=== PATIENT | female | born 1990 | race Caucasian/White ===

== ENCOUNTER 2017-07-28 17:52 | Emergency (ER) | END 2017-07-28 22:44 | disposition home or self-care (01) ==

== ENCOUNTER 2017-11-21 02:38 | Inpatient (IN) | END 2017-11-23 18:30 | disposition home or self-care (01) | DRG 782 ==

== ENCOUNTER 2017-11-30 18:14 | Outpatient (CLI) | END 2017-11-30 21:35 | disposition home or self-care (01) ==

== ENCOUNTER 2017-12-07 12:00 | Outpatient (CLI) | END 2017-12-08 02:00 | disposition home or self-care (01) ==

== ENCOUNTER 2017-12-12 14:42 | Outpatient (CLI) | END 2017-12-12 16:15 | disposition home or self-care (01) ==

== ENCOUNTER 2017-12-29 08:43 | Inpatient (IN) | END 2018-01-01 14:30 | disposition home or self-care (01) | DRG 766 ==